=== PATIENT | female | born 1965 | race African-American/Black ===

== ENCOUNTER → 2018-05-01 15:44 | Outpatient (CLI) | payer OTHER, SELFPAY ==
--- NOTE | 2018-05-01 | DI.MRI.S_ITS ---
PROCEDURE: MR CERVICAL SPINE WO CON INDICATIONS: CERVICAL SPINE PAIN TECHNIQUE: Noncontrast sagittal T1 spin echo and T2 fast spin echo, sagittal STIR, foraminal oblique sagittal T2 fast spin echo, and axial gradient echo or T2 fast spin echo through the cervical spine. COMPARISON: None. FINDINGS: Image quality: Excellent. Alignment and Curvature: There is loss of normal cervical lordosis. There is mild grade 1 retrolisthesis of C6 on C7. Bone Marrow: Marrow demonstrates normal overall signal. Spinal Cord: Visualized spinal cord has normal size and signal. No cerebellar tonsillar herniation. Paraspinous Soft Tissues: No paravertebral masses. Prevertebral soft tissues are normal in thickness. C2-C3: Disc desiccation and mild diffuse disc bulge. No significant canal, nor foraminal stenosis. C3-C4: Mild disc desiccation and mild diffuse disc bulge. Mild facet and uncovertebral hypertrophy bilaterally. Mild canal stenosis. No foraminal stenosis. C4-C5: Mild disc desiccation and diffuse disc bulge. Mild facet and uncovertebral hypertrophy. Mild canal stenosis. No foraminal stenosis. C5-C6: Moderate disc desiccation and mild diffuse disc bulge. Bilateral mild facet and uncovertebral hypertrophy. Mild canal stenosis. Mild foraminal stenosis bilaterally. C6-C7: Moderate disc desiccation and moderate diffuse disc bulge. Mild facet and uncovertebral hypertrophy bilaterally. Moderate canal stenosis. Mild foraminal stenosis bilaterally. C7-T1: Normal appearance. IMPRESSION: 1. Multilevel degenerative disc and facet disease, as well as uncovertebral hypertrophy. 2. Multilevel canal stenoses, worst at C6-C7, where there is moderate canal stenosis. 3. Mild multilevel foraminal stenoses. Dictated by: Celso Saez M.D. on 05/01/2018 at 16:38 Approved by: Celso Saez M.D. on 05/01/2018 at 16:42
== END ==
PROVIDERS: Family Provider Internal Medicine; PCP Internal Medicine; Visit Provider Physical Medicine & Rehabilitation Pain Medicine
DX: M50.30 Other cervical disc degeneration, unspecified cervical region (principal); M47.812 Spondylosis without myelopathy or radiculopathy, cervical region; M48.02 Spinal stenosis, cervical region
CPT/HCPCS: 72141

== ENCOUNTER → 2018-07-31 11:49 | Outpatient (CLI) | payer OTHER, SELFPAY ==
--- NOTE | 2018-07-31 | DI.MRI.S_ITS ---
PROCEDURE: MR CHEST WO/W CON INDICATIONS: RIGHT MASS AT BASE OF THE NECK TECHNIQUE: Axial 2-D FLASH in- and [id number], axial breath-hold T2 FSE, axial STIR FSE. Optional contrast may be given, followed by axial 2-D FLASH with fat saturation acquired over the lesion of concern. COMPARISON: [facility], MR, SHOULDER WITHOUT CONTRAST, 04/05/2017, 13:34. [facility], CR, XR CERVICAL SPINE WITH OBLIQUES, 04/08/2018, 14:22. [facility], MR, MR CERVICAL SPINE WO CON, 05/01/2018, 15:56. FINDINGS: Image quality: Excellent. Region of interest: There is an ovoid enhancing mass lesion with elevated STIR signal located within the posterior right supraclavicular fossa that appears relatively sharply demarcated, measuring up to 4.5 cm AP, 4.1 cm transverse, and with a craniocaudad extent of 6.5 cm. Adjacent right-sided adenopathy is not seen. There is an enhancing 1.7 x 1.8 cm masslike structure contiguous with the upper margin of the left subclavian vein near the jugular confluence, which on several of the pulse sequences appears to represent an exophytic venous structure contiguous with that upper margin of the venous confluence. No identified salivary gland mass. No adenopathy is seen in the more superior aspect of the visualized neck. Bones: Nearby osseous structures demonstrate normal overall marrow signal. IMPRESSION: Benign or malignant neoplasm is the presumed etiology for the large right posterior relatively sharply demarcated mass lesion at the supraclavicular fossa, measuring up to 4.5 x 4.1 x 6.5 cm. This has heterogeneous internal enhancement, may represent a soft tissue sarcoma, and is not associated with a visualized pulmonary or mediastinal mass, or glandular mass involving the neck. As noted there is also a sharply demarcated left-sided rounded enhancing structure contiguous with the superior margin of the venous confluence between the medial left subclavian vein and the descending left jugular vein. This has an appearance that conceivably could represent an abnormal hyperenhancing lymph node but is considered more likely a venous abnormality. Etiology could be differentiated utilizing targeted ultrasound assessment of the exact area. A venous congenital or acquired anomaly (for example, venous pseudoaneurysm) is considered the most likely cause but ultrasound assessment is definitely recommended. At that time additional assessment of the left-sided mass could be performed by ultrasound. Oncologic surgical consultation is recommended. Nuclear medicine PET CT scanning likely is warranted given this unusual finding. Dictated by: Rolf Randall M.D. on 07/31/2018 at 15:19 Approved by: Rolf Randall M.D. on 07/31/2018 at 15:38
== END ==
PROVIDERS: PCP Internal Medicine; Visit Provider Orthopaedic Surgery
DX: R22.1 Localized swelling, mass and lump, neck (principal)
CPT/HCPCS: 71552; A9579